=== PATIENT | female | born 1950 | race Caucasian/White ===

== ENCOUNTER → 2022-07-31 | Outpatient (RCR) | payer MEDICARE, OTHER ==
[~2022-07-31] MED LIST: IPRATROPIUM BROM3 M1 IH; NEB MC; PREDNISONE20 MG PO
== END | disposition home or self-care (01) ==
LOC: MKS.ESL.PT
DX: M25.511 Pain in right shoulder (principal); G89.29 Other chronic pain

== ENCOUNTER 2023-05-14 11:30 | Outpatient (RCR) | payer MEDICARE, OTHER | END 2023-05-29 13:52 | disposition home or self-care (01) | LOC: MKS.ESL.PT 11:30 | DX: S76.311D Strain of muscle, fascia and tendon of the posterior muscle group at thigh level, right thigh, subsequent encounter (principal); M25.561 Pain in right knee; X58.XXXD Exposure to other specified factors, subsequent encounter ==